=== PATIENT | male | born 1930 | race Caucasian/White ===

== ENCOUNTER 2018-03-23 21:55 | Inpatient (IN) | payer OTHER, BC ==
[~2018-03-23] VITALS: Ht 170.2 cm; Wt 75.7 kg
--- NOTE | ~2018-03-23 | HC ---
[facility] [place] [address] CONSULTATION Name: YUE LEZAMA Room #: 216-P [facility] IN M.R.#: [id number] Admission: 03/23/18 Attend Phys: Kimberly Black Discharge: 03/25/18 Date of : [birth year] Report #: [id number] THIS REPORT FOR: //name// CC: Stone Black DATE OF SERVICE: 03/24/2018 REASON FOR CONSULTATION: Shortness of breath. 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 His history includes hypertension, sleep apnea, and heart block with prior pacemaker implantation. His history also includes paroxysmal atrial fibrillation for which he has been anticoagulated. He now presents with increasing shortness of breath with orthopnea. Does report that in the past week, he has eaten out at a [place] restaurant and [place] restaurants, something that he does not typically do. He denies chest heaviness or pressure. No history of palpitations. No bleeding problems with apixaban. No history of near syncope or syncope. ALLERGIES: No known drug allergies. MEDICATIONS: Include simvastatin 20 mg daily, apixaban 5 mg twice daily, carvedilol 6.25 mg twice daily, lisinopril 20 mg daily, potassium 10 mEq daily, torsemide 5 mg daily and terazosin. PAST MEDICAL HISTORY: Medical records have been reviewed and include a history of hypertension, heart block with Medtr[employer] pacemaker implantation, bioprosthetic aortic valve replacement, homograft in 2001, remote endocarditis. SOCIAL HISTORY: Nonsmoker, nondrinker. . FAMILY HISTORY: Unremarkable for premature coronary disease. REVIEW OF SYSTEMS: All systems negative except as that noted above. PHYSICAL EXAMINATION: GENERAL: A pleasant gentleman, in no distress. VITAL SIGNS: Blood pressure is 129/54, heart rate of 77 and regular, temperature is 97.4 degrees. HEENT: There are neither xanthelasma, subcutaneous xanthomata, oral mucosal or digital cyanosis or kyphoscoliosis present. CHEST: Clear to auscultation and percussion. CARDIOVASCULAR: Regular rate and rhythm with normal S1 and S2, 2/6 systolic murmur at the base and a 2/6 diastolic murmur at the left sternal border. [facility] [address] [place] [address] CONSULTATION Name: YUE LEZAMA Room #: 216-P [facility] IN M.R.#: [id number] Admission: 03/23/18 Attend Phys: Kimberly Black Discharge: 03/25/18 Date of : [birth year] Report #: [id number] ABDOMEN: Soft and nontender. EXTREMITIES: With 1-2+ pedal edema. Radial pulses are 2+. NEUROLOGIC: Alert with a nonfocal exam. LABORATORY DATA: Sodium is 141, potassium 4.1, creatinine 1.4. BNP of 24,000. Troponin is 0.08. White count 6.3, hemoglobin 13, hematocrit 39, and platelet count 154. RADIOLOGICAL DATA: Chest x-ray demonstrates chronic lung changes. EKG sinus rhythm with ventricular pacing. IMPRESSION: 1. Bnktb-ca-ddmfoqa diastolic heart failure. 2. Chronic kidney disease. 3. Valvular heart disease; remote aortic homograft (2001). 4. Aortic stenosis. 5. Paroxysmal atrial fibrillation; prior pacemaker implantation. 6. Hypercoagulable. RECOMMENDATIONS: 1. IV Lasix. 2. Dietary salt restriction. 3. Echocardiogram ordered. 4. Thyroid function studies. Further thoughts and plans will be forthcoming based on this evaluation. Thank you for asking me to participate in the patient's care. <ELECTRONICALLY SIGNED> By: Stone De La Fuente MD, FACC 03/27/18 1250 0801 37 Stone De La Fuente MD, FACC /nt
--- NOTE | ~2018-03-23 | 2DMMODE ---
[facility] [address] [place] [address] 2 D/M-MODE ECHOCARDIOGRAM Name: YUE LEZAMA FREDO Room #: 216-P ADM IN M.R.#: [id number] Admission: 03/23/18 Attend Phys: Kimberly Rankin Discharge: Date of : [birth year] Date of Service: 03/24/18 0930 Report #: [id number] THIS REPORT FOR: //name// APPROVED REPORT Study performed: 03/24/2018 08:29:00 EXAM: Comprehensive 2D, Doppler, and color-flow Echocardiogram Patient Location: Bedside Room #: 216 Status: routine BSA: 1.87 HR: 68 bpm BP: 129/54 mmHg Other Information Study Quality: Good Indications Congestive Heart Failure Pacemaker Hypertension/HDD AVR 2D Dimensions RVDd: 53.45 mm LVEF(%): 44.32 (>50%) IVSd: 12.14 (7-11mm) LVOT Diam: 21.24 (18-24mm) LVDd: 58.62 mm PWd: 11.50 (7-11mm) Ascending Ao: 34.42 (22-36mm) LVDs: 45.53 (25-40mm) Aortic Root: 34.46 mm IVC: 33.00 mm Merino's LVEF: 44.32 % Volumes Left Atrial Volume (Systole) Single Plane 4CH: 89.67 mL Single Plane 2CH: 66.84 mL LA ESV Index: 44.00 mL/m2 Aortic Valve AoV Peak Rustam.: 1.41 m/s AO Peak Gr.: 7.90 mmHg LVOT Max P.22 mmHg LVOT Max V: 0.90 m/s RAZA Vmax: 2.26 cm2 AI Vmax: 2.01 m/s AI [place]: 3.00 m/s2 [facility] [place] [address] 2 D/M-MODE ECHOCARDIOGRAM Name: YUE LEZAMA Room #: 216-[facility] IN .R.#: [id number] Admission: 03/23/18 Attend Phys: Kimberly Rankin Discharge: Date of : [birth year] Date of Service: 03/24/18 0930 Report #: [id number] PHT: 194.50 ms Mitral Valve E/A Ratio: 3.1 MV Decel. Time: 220.62 ms MV E Max Rustam.: 1.05 m/s MV A Rustam.: 0.34 m/s MV PHT: 63.98 ms IVRT: 124.57 ms Pulmonary Valve PV Peak Rustam.: 0.79 m/s PV Peak Gr.: 2.50 mmHg Tricuspid Valve TR Peak Rustam.: 4.12 m/s TR Peak Gr.: 67.79 mmHg PA Pressure: 77.00 mmHg Left Ventricle Left ventricle is dilated. There is normal LV segmental wall motion. Mild concentric left ventricular hypertrophy. Left ventricular systolic function is mildly decreased. Discordant distal septal motion, probably from RV pacing LVEF 45%. The diastolic function is abnormal. Right Ventricle The right ventricle is normal size. The right ventricular systolic function is normal. Atria Left atrium is dilated. Right atrium is dilated. Aortic Valve Homograft aortic valve is present, mildly calcified Homograft aortic valve is present. Moderate regurgitation There is no aortic valvular stenosis. Mitral Valve The mitral valve is normal in structure. Moderate to severe mitral regurgitation No evidence of mitral valve stenosis. Tricuspid Valve The tricuspid valve is normal in structure. There is mild tricuspid regurgitation. Estimated PAP 75 mmHg. There is severe pulmonary hypertension. [facility] [address] [address] 2 D/M-MODE ECHOCARDIOGRAM Name: TEJAYUE YOO Room #: 216-P [facility] IN M.R.#: [id number] Admission: 03/23/18 Attend Phys: Kimberly Rankin Discharge: Date of : [birth year] Date of Service: 03/24/18 0930 Report #: [id number] Pulmonic Valve The pulmonary valve is normal in structure. Mild pulmonic regurgitation. Great Vessels The aortic root is normal in size. IVC is dilated and collapses <50% with inspiration. Pericardium There is no pericardial effusion. <Conclusion> Left ventricular systolic function is mildly decreased. Discordant distal septal motion, probably from RV pacing LVEF 45%. Both atria are dilated. Homograft aortic valve is present, mildly calcified. Moderate regurgitation, no stenosis The mitral valve is normal in structure. Moderate to severe mitral regurgitation There is mild tricuspid regurgitation. Estimated pulmonary artery pressure of 75 mmHg. There is no pericardial effusion. <ELECTRONICALLY SIGNED> By: Stone De La Fuente MD, [facility] 03/24/18929 9 9 Stone De La Fuente MD, FACC /INF
--- NOTE | ~2018-03-23 | EKG ---
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 : 1930 Requested By: Hayder Silverio Order Number: [id number] MD: Stone De La Fuente Measurements Intervals [place] Rate: 80 P: -18 W[place]: 235 QRS: -74 QRSD: 188 T: 107 QT: 451 QTc: 521 Interpretive Statements Ventricular-paced complexes No further analysis attempted due to paced rhythm Compared to ECG 06/13/2012 20:28:01 Ventricular pacing is now present Electronically Signed On 03-24-2018 9:20:09 CDT by Stone De La Fuente [email or web address] <ELECTRONICALLY SIGNED> By: Stone De La Fuente MD, [facility] 03/24/18 0920 [id number] Stone De La Fuente MD, [facility] /EPI
[~2018-03-23 21:55] MED LIST: ALEVE220 M1 PO; ASPIR 8181 MG PO; ASPIRIN EC81 M1 PO; FISH OIL 1,001000 M2 PO; HYDROCHLOROTH12.5 MG PO; HYTRIN 5 M5 MG/1 CAP PO; HYTRIN10 MG PO; KEFLEX250 MG PO; LOTREL 5-40 MG1 EACH PO; OCUVITE TABLET1 EAC1 PO; PREVACID15 MG PO; TOPROL XL50 MG PO; ZOCOR 20 MG TAB20 M1 PO
[2018-03-23 22:09] VITALS: BP 127/46
[2018-03-23] MEDS ORDERED: TYLENOL EXTRA500 MG PO (22:15)
[2018-03-23] MEDS ORDERED: ELIQUIS5 MG PO (22:16)
[2018-03-23] MEDS ORDERED: PRINIVIL20 M1 PO (22:17)
[2018-03-23] MEDS ORDERED: COREG6.25 MG PO (22:17)
[2018-03-23] MEDS ORDERED: KLOR-CON 1010 MEQ PO (22:18)
[2018-03-23] MEDS ORDERED: TERAZOSIN HCL5 MG PO (22:19)
[2018-03-23] MEDS ORDERED: DEMADEX20 MG PO (22:20)
[2018-03-23 23:00] LABS: ABSOLUTE NEUTROPHILS 5.5 thou/uL (1.4-8.2); BASOPHILS 0.9 % (0.0-2.0); EOSINOPHILS 0.9 % (0.0-3.0); HEMATOCRIT 39.5 % (42.0-52.0); HEMOGLOBIN 13.2 gm/dL (14.0-18.0); LYMPHOCYTES 12.5 % (24.0-44.0); MCH 32.8 pg (26.0-34.0); MCHC 33.6 g/dL (28.0-37.0); MCV 97.6 fL (80.0-100.0); PLATELET COUNT 167 thou/uL (150-400); POLYS 75.7 % (36.0-66.0); RBC 4.04 mil/uL (4.50-6.00); WBC 7.3 thou/uL (4.0-11.0)
[2018-03-23 23:06] LABS: CALCIUM 9.2 mg/dL (8.5-10.1); CREATININE 1.4 mg/dL (0.7-1.3); POTASSIUM 4.5 mmol/L (3.5-5.1)
[2018-03-23 23:14] LABS: ALBUMIN 3.3 g/dL (3.4-5.0); TOTAL PROTEIN 6.4 g/dL (6.4-8.2); TROPONIN-I 0.06 ng/mL (<0.06)
[2018-03-24 00:30] VITALS: BP 123/55
[2018-03-24 05:08] LABS: HEMATOCRIT 39.3 % (42.0-52.0); MCH 32.4 pg (26.0-34.0); MCHC 32.9 g/dL (28.0-37.0); MCV 98.2 fL (80.0-100.0); RDW 15.6 % (10.5-14.5); WBC 6.3 thou/uL (4.0-11.0)
[2018-03-24 05:16] VITALS: BP 129/54
[2018-03-24 05:30] LABS: CALCIUM 9.1 mg/dL (8.5-10.1); CREATININE 1.4 mg/dL (0.7-1.3); POTASSIUM 4.1 mmol/L (3.5-5.1); TROPONIN-I 0.08 ng/mL (<0.06)
[2018-03-24 08:21] VITALS: BP 122/32
[2018-03-24 13:00] VITALS: BP 111/28
[2018-03-24 18:17] VITALS: BP 120/47
[2018-03-24 19:55] VITALS: BP 109/35
[2018-03-25 03:21] LABS: CALCIUM 8.8 mg/dL (8.5-10.1); CREATININE 1.5 mg/dL (0.7-1.3); POTASSIUM 3.9 mmol/L (3.5-5.1)
[2018-03-25 04:29] VITALS: BP 118/37
[2018-03-25 08:19] VITALS: BP 122/47
[2018-03-25] MEDS ORDERED: LISINOPRIL10 MG PO (09:12)
[2018-03-25] MEDS ORDERED: DEMADEX 2020 MG/1 TA PO (09:12)
[2018-03-25 10:31] VITALS: BP 122/47
== END 2018-03-25 11:55 | disposition home or self-care (01) | DRG 291 ==
LOC: ER 21:55 → 2N 23:26 → EROBS 23:26 → 2N 03-24 00:42 → ENTRNSPT 03-25 11:25 → EDTRNSPTSTS 03-25 11:29 → 2N 03-25 11:55
PROVIDERS: Emergency Medicine; Internal Medicine; Nurse Practitioner Family
DX: I13.0 Hypertensive heart and chronic kidney disease with heart failure and stage 1 through stage 4 chronic kidney disease, or unspecified chronic kidney disease (principal); I50.33 Acute on chronic diastolic (congestive) heart failure; N17.9 Acute kidney failure, unspecified; I38 Endocarditis, valve unspecified; D68.59 Other primary thrombophilia; N18.9 Chronic kidney disease, unspecified; I35.0 Nonrheumatic aortic (valve) stenosis; I48.0 Paroxysmal atrial fibrillation; E78.5 Hyperlipidemia, unspecified; I27.20 Pulmonary hypertension, unspecified; N40.0 Benign prostatic hyperplasia without lower urinary tract symptoms; Z95.2 Presence of prosthetic heart valve; Z87.891 Personal history of nicotine dependence; Z95.0 Presence of cardiac pacemaker; Z82.49 Family history of ischemic heart disease and other diseases of the circulatory system; Z79.899 Other long term (current) drug therapy
CPT/HCPCS: 10081